=== PATIENT | female | born 1970 | race Caucasian/White ===

== ENCOUNTER 2018-01-24 13:21 | Emergency (ER) | END 2018-01-24 18:49 | disposition home or self-care (01) ==

== ENCOUNTER 2018-05-11 16:47 | Emergency (ER) | payer MEDICAID, OTHER ==
[~2018-05-11] VITALS: Ht 165.1 cm; Wt 70.0 kg
[~2018-05-11 16:47] MED LIST: ACET500C5 PO; ALBU8.5H8 INH; BECL8.7A INH; CEPH-443 PO; CETI10CA PO; GUAI473L22 PO; PREN1TAB13 PO
[2018-05-11 16:51] VITALS: Ht 165.1 cm; Wt 70.0 kg
[2018-05-11] MEDS ORDERED: ACETAMINOPHEN 325 MG TAB PO ONE (17:00)
[2018-05-11] MEDS ORDERED: IBUP-1542 PO (20:05)
[2018-05-11 20:16] VITALS: BP 129/67; PULSE 62; RESP 17
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
== END 2018-05-11 20:18 | disposition home or self-care (01) ==
LOC: E/R 16:47
DX: M25.552 Pain in left hip (principal); M79.652 Pain in left thigh; R10.30 Lower abdominal pain, unspecified; Z32.02 Encounter for pregnancy test, result negative
CPT/HCPCS: 36415; 73550; 76801; 76817; 80053; 84702; 85025; 86900; 86901; Z7502; Z7610